=== PATIENT | male | born 1955 ===

== ENCOUNTER 2017-01-29 11:50 | Outpatient (CLI) | payer BC ==
[2017-01-29 16:43] LABS: ALT (SGPT) 77 U/L (8-55); AST (SGOT) 35 U/L (5-34); Albumin 4.3 g/dL (3.5-5.0); Alkaline Phosphatase 72 U/L (40-150); Anion Gap 15 mmol/L (10-20); BUN (Urea Nitrogen) 28 mg/dL (8.4-25.7); Bilirubin, Total 0.6 mg/dL (0.2-1.2); Calc. Creatinine Clearance 0 mL/min (70-130); Calcium 9.5 mg/dL (7.8-10.44); Carbon Dioxide 24 mmol/L (22-29); Cardiac Risk 4.8 (Less than 4.5); Chloride 107 mmol/L (98-107); Cholesterol 182 mg/dl (< 200 Desired); Estimated GFR-MDRD 52; Glucose 112 mg/dL (70-105); HDL Cholesterol 38 mg/dL (>60 Neg Risk); LDL Cholesterol, Calculated 126 mg/dL; Potassium 5.3 mmol/L (3.5-5.1); Protein, Total 7.3 g/dL (6.0-8.3); Sodium 141 mmol/L (136-145); Triglycerides 91 mg/dL (Less than 150)
[2017-01-29 16:58] LABS: Band 1 % (5-11); Eosinophils 1 % (0-10); Hemoglobin 15.9 g/dL (14.0-18.0); Lymphocytes 26 % (21-51); MDiff Complete? YES; Mean Corpuscular HGB CONC 34.4 g/dL (32.0-36.0); Mean Corpuscular Hemoglobin 33.3 pg (27.0-31.0); Mean Corpuscular Volume 96.9 fl (80.0-94.0); Mean Platelet Volume 8.9 fL (7.4-10.4); Monocytes 5 % (0-10); Neutrophil 66 % (42-75); Platelet Count 200 thou/uL (130-400); RBC Distribution Width 11.4 % (11.5-14.5); Reactive Lymphocytes 1 % (0-10); Red Blood Cell (RBC) Count 4.79 mill/uL (4.70-6.10); White Blood Cell (WBC) Count 9.1 thou/uL (4.8-10.8)
[2017-01-29 17:02] LABS: PSA-Asymptomatic (SCREENING) 0.58 ng/mL (0-4.0); Thyroid Stimulating Hormone 1.6519 uIU/mL (0.35-4.94)
[2017-01-30 10:32] LABS: Hemoglobin A1c 5.1 % (4.0-6.0)
== END 2017-01-29 11:51 | disposition home or self-care (01) ==
LOC: LABLEX 11:50
PROVIDERS: ATTEND Nurse Practitioner
DX: Z12.5 Encounter for screening for malignant neoplasm of prostate (principal); I10 Essential (primary) hypertension
CPT/HCPCS: 80053; 80061; 83036; 84443; 85025; G0103